=== PATIENT | female | born 2000 | race Two or more races ===

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

== ENCOUNTER 2021-12-31 19:42 | Emergency (ER) | payer MEDICAID, OTHER ==
[~2021-12-31] VITALS: Ht 157.5 cm; Wt 56.7 kg
[2021-12-31 19:42] VITALS: BP 111/75
== END 2021-12-31 21:50 | disposition home or self-care (01) ==
LOC: ER 19:42
DX: S16.1XXA Strain of muscle, fascia and tendon at neck level, initial encounter (principal); S39.012A Strain of muscle, fascia and tendon of lower back, initial encounter; V43.62XA Car passenger injured in collision with other type car in traffic accident, initial encounter; Y93.89 Activity, other specified; Y92.488 Other paved roadways as the place of occurrence of the external cause; Y99.8 Other external cause status
CPT/HCPCS: 72100; 72125